=== PATIENT | male | born 2000 | race Caucasian/White ===

== ENCOUNTER 2019-01-29 18:09 | Emergency (ER) | payer MEDICAID ==
[~2019-01-29] VITALS: Ht 182.9 cm; Wt 89.0 kg
[2019-01-29 18:15] VITALS: BP 114/61
--- NOTE | 2019-01-29 18:30 | NUR ---
PT C/O LT FOOT PAIN X1 DAY. PT WAS PLAYING SOCCER AND REPORTS "TAKING A WRONG STEP AND HEARING A POP" CONSTANT SHARP PAIN ON LT HEAL AT 8/10. REDNESS PRESENT, NO SWELLING. DENIES N/V/D; SKIN IS PINK/WARM/DRY; AAOX4 WITH EVEN AND STEADY GAIT; PT DENIES ANY FEVER, CP, SOB, OR COUGH AT THIS TIME; PATIENT STATES PAIN OF 8/10 AT THIS TIME; VSS; PATIENT POSITIONED FOR COMFORT; HOB ELEVATED; BEDRAILS UP X1; BED DOWN. ER MD MADE AWARE OF PT STATUS.
--- NOTE | 2019-01-29 19:21 | NUR ---
DR. PROCTOR BEDSIDE EVALUATING PT
[2019-01-29] MEDS ORDERED: IBUPROFEN 800 MG TAB PO ONE (19:40)
[2019-01-29 20:13] VITALS: BP 115/61
== END 2019-01-29 20:13 | disposition home or self-care (01) ==
LOC: MED 18:09
DX: S93.602A Unspecified sprain of left foot, initial encounter (principal); X58.XXXA Exposure to other specified factors, initial encounter; Y93.66 Activity, soccer; Y92.89 Other specified places as the place of occurrence of the external cause; Y99.8 Other external cause status
CPT/HCPCS: 73610; 73630; 99283; Q0092

== ENCOUNTER 2019-05-29 06:36 | Emergency (ER) | payer SELFPAY ==
[~2019-05-29] VITALS: Ht 182.9 cm; Wt 88.5 kg
[2019-05-29 06:41] VITALS: BP 115/71
--- NOTE | 2019-05-29 06:43 | NUR ---
PT AMBULATED TO BED 8.
--- NOTE | 2019-05-29 06:45 | NUR ---
18/M PRESENTED TO ED WITH C/O SEVERE SORE THROAT AND JAW-TIGHTNESS X1 DAY. 8/10 PAIN. TONSIL EDEMA AND REDNESS NOTED. NO EXUDATE. AFEBRILE VSS. STATES SLIGHT DIFFICULTY SWALLOWING. EVEN UNLABORED BREATHING. NO SIGNS OF DISTRESS NOTED. STATES NO MEDS TAKEN TO TX SYMPTOMS PRIOR TO ARRIVING. MOTHER AT BEDSIDE. DENIES PAST MED HX, RX, DENIES ALLERGIES.
--- NOTE | 2019-05-29 07:11 | NUR ---
BEDSIDE REPORT GIVEN TO NILO MORILLO.
--- NOTE | 2019-05-29 07:29 | NUR ---
RADIOLOGY PICKED UP PT IN A WHEELCHAIR TO GET CT SCAN.
--- NOTE | 2019-05-29 07:37 | NUR ---
PT RETURN FROM CT.
[2019-05-29 08:35] VITALS: BP 115/71
--- NOTE | 2019-05-29 08:35 | NUR ---
Patient discharged with v/s stable. Written and verbal after care instructions given and explained. Patient alert, oriented and verbalized understanding of instructions. Ambulatory with steady gait. All questions addressed prior to discharge. ID band removed. Patient advised to follow up with PMD. Rx of VISCOUS LIDOCAINE, MOTRIN, AMOXICILLIN given. Patient educated on indication of medication including possible reaction and side effects. Opportunity to ask questions provided and answered.
== END 2019-05-29 08:35 | disposition home or self-care (01) ==
LOC: MED 06:36
DX: R59.0 Localized enlarged lymph nodes (principal); J02.8 Acute pharyngitis due to other specified organisms; B96.89 Other specified bacterial agents as the cause of diseases classified elsewhere
CPT/HCPCS: 70490; 99284